=== PATIENT | female | born 1985 | race Caucasian/White ===

== ENCOUNTER 2020-06-20 13:15 | Emergency (ER) | payer BC, OTHER ==
[2020-06-20 13:55] LABS: RED BLOOD COUNT 5.26 M/UL (4.00-5.10)
[2020-06-20 15:00] LABS: BUN/CREATININE RATIO 14 (0-10)
== END 2020-06-20 23:11 ==
LOC: ER1 13:15
PROVIDERS: Physician Assistant
DX: T43.292A Poisoning by other antidepressants, intentional self-harm, initial encounter (principal); T43.622A Poisoning by amphetamines, intentional self-harm, initial encounter; D72.829 Elevated white blood cell count, unspecified; Z20.822 Contact with and (suspected) exposure to COVID-19
CPT/HCPCS: 71045; 80053; 80307; 81001; 84703; 85025; 93005; 96374; 96376; 99285; G0480; J2060; U0002

== ENCOUNTER 2021-02-02 23:58 | Emergency (ER) | payer OTHER ==
[2021-02-03] MEDS ORDERED: NORFLEX 100 MG100 MG PO (02:19)
[2021-02-03] MEDS ORDERED: VOLTAREN 1% TOP (02:19)
== END 2021-02-03 02:30 | disposition home or self-care (01) ==
LOC: ER1 23:58
DX: M25.552 Pain in left hip (principal); M79.605 Pain in left leg; F17.210 Nicotine dependence, cigarettes, uncomplicated; Z90.710 Acquired absence of both cervix and uterus; F41.9 Anxiety disorder, unspecified; Z88.8 Allergy status to other drugs, medicaments and biological substances
CPT/HCPCS: 73502; 73552; 73590; 99283

== ENCOUNTER 2021-04-16 02:48 | Emergency (ER) | payer OTHER ==
[~2021-04-16 02:48] MED LIST: NORFLEX 100 MG100 MG PO; VOLTAREN 1% TOP
== END 2021-04-16 03:15 | disposition left against medical advice (07) ==
LOC: ER1 02:48
DX: Z53.21 Procedure and treatment not carried out due to patient leaving prior to being seen by health care provider (principal)